=== PATIENT | male | born 2000 | race Caucasian/White ===

== ENCOUNTER 2022-06-12 10:14 | Emergency (ER) | payer SELFPAY ==
[2022-06-12 10:20] VITALS: BP 146/85; PULSE 80; RESP 16; TEMP 36.4; O2SAT 99; BMI 22.5
--- NOTE | 2022-06-12 10:32 | ED_ITS ---
HPI - Abdominal Pain General: Chief Complaint: Abdominal Pain Stated Complaint: abd pain Time Seen by Provider: 06/12/22 10:25 History of Present Illness: Patient is a 22-year-old male comes to the ED with abdominal pain. Symptoms started last night and it woke him up. He describes having 7 out of 10 aching/sharp pain in the upper abdomen bilaterally but most of it is located in the epigastric region. He has never had pain like this before and denies any history of acid reflux. Patient Dors is having normal daily bowel movements. Denies any fevers, chills, nausea/vomiting, bladder or bowel symptoms. Denies any black stool. Associated Symptoms: Denies chills, constipation, diarrhea, dysuria, fever(s), hematochezia, hematuria, nausea and vomiting Review of Systems Const: Denies: fever(s), chills or fatigue Eyes: Denies: change in vision or eye discomfort ENMT: Denies: throat pain, odynophagia, nasal discharge or nasal congestion Card: Denies: chest pain, palpitations, edema, swelling of feet/ankles, dyspnea on exertion or orthopnea Resp: Denies: dyspnea, productive cough or non-productive cough GI: Reports: abdominal pain; Denies: nausea, vomiting, diarrhea, constipation or hematochezia : Denies: flank pain, difficulty urinating, dysuria or hematuria Musc: Denies: neck pain, back pain or extremity swelling Skin/Breast: Denies: rash or new lesions Neuro: Denies: headache(s), numbness in extremities or weakness in extremities [facility] ED PFSH: Medical History (Updated 06/12/22 @ 12:22 by ERICKA Fernandez) No pertinent family history Surgical History (Updated 06/12/22 @ 10:35 by ERICKA Fernandez) No pertinent past surgical history Physical Exam Const: COMMON NORMALS: no acute distress, patient oriented x3, healthy appearing and alert GENERAL APPEARANCE: cooperative and comfortable HENMT: COMMON NORMALS: normocephalic HEAD & SCALP: normocephalic MOUTH: Normal oral and palatal mucosa present THROAT: posterior oropharynx normal and uvula midline Neck/C-Spine: COMMON NORMALS: supple GENERAL: Yes normal visual inspection Resp: COMMON NORMALS: normal respiratory effort, No retractions, No use of accessory muscles and clear to auscultation bilaterally AUSCULTATION: clear to auscultation bilaterally Cardio: COMMON NORMALS: regular rate, regular rhythm, S1 normal heart sound present, S2 normal heart sound present, No gallops present (Cardio), No clicks present (Cardio), No murmurs present (Cardio) and Peripheral pulses 2+ throughout RATE: regular rate RHYTHM: regular rhythm HEART SOUNDS: S1 normal heart sound present and S2 normal heart sound present PERIPHERAL PULSES: Peripheral pulses 2+ throughout GI: COMMON NORMALS: Normal to inspection, nondistended, normoactive bowel shyanne nds present, Soft to palpation and no masses PALPATION: Yes Soft to palpation and Yes Tenderness to palpation present (GI) (Mild tenderness to upper abdomen bilaterally and epigastric region) Details: LUQ, RUQ and other (Epigastric) : COMMON NORMALS: Yes no CVA tenderness BLADDER/KIDNEY EXAM: Yes no CVA tenderness Back/Pelvis: COMMON NORMALS: no CVA tenderness Extremity: COMMON NORMALS: normal to inspection Neuro: COMMON NORMALS: patient oriented x3 SENSORIUM/ORIENTATION: Yes alert GAIT: Yes Normal gait present Skin: GENERAL SKIN EXAM: dry skin Course Vital Signs: Vital signs: Vital Signs Temperature 97.6 F 06/12/22 10:20 Pulse Rate 72 06/12/22 12:25 Respiratory Rate 16 06/12/22 10:20 Blood Pressure 128/67 06/12/22 12:25 Pulse Oximetry 99 06/12/22 12:25 Oxygen Delivery Me thod 06/12/22 12:25 MDM - Abdominal Pain Medical Decision Making Patient is a 22-year-old male comes to the ED with abdominal pain. Symptoms started last night and it woke him up. He describes having 7 out of 10 aching/sharp pain in the upper abdomen bilaterally but most of it is located in the epigastric region. He has never had pain like this before and denies any history of acid reflux. Patient Dors is having normal daily bowel movements. Denies any fevers, chills, nausea/vomiting, bladder or bowel symptoms. Denies any black stool. Vitals are stable. Patient appears nontoxic and in no acute distress or pain. He is healthy appearing and sitting comfortably on exam bed. He has some mild tenderness is generalized throughout the upper abdomen. KUB shows a lot of stool in the large intestine and all labs were unremarkable. Given patient's clinical appearance, exam, labs and KUB he is stable for discharge home and can follow-up with his PCP in the next 3 to 5 days for reevaluation. He was sent home with a prescription for MiraLAX to help with bowel movements. Strict return to ED precautions given. Patient understood and agreed with plan. Lab Data I reviewed the patient's lab results. 06/12/22 10:47 06/12/22 10:47 Labs/Radiology: Radiology Impressions KUB X-Ray 06/12/22 10:36 IMPRESSION: Probable constipation otherwise negative study. Laboratory Results WBC 6.4 10^3/uL (4.0-10.0) 06/12/22 10:47 RBC 5.67 10^6/uL (4.1-5.3) H 06/12/22 10:47 Hgb 15.9 g/dL (11.7-16.6) 06/12/22 10:47 Hct 49.7 % (42.0-52.0) 06/12/22 10:47 MCV 87.7 fl (80-94) 06/12/22 10:47 MCH 28.0 pg (28.0-34.0) 06/12/22 10:47 MCHC 32.0 g/dL (30.0-36.0) 06/12/22 10:47 RDW 14.0 % (12.1-15.1) 06/12/22 10:47 Plt Count 363 10^3/cmm (130-400) 06/12/22 10:47 MPV 9.2 fL (7.4-10.4) 06/12/22 10:47 Neut % (Auto) 68.9 % 06/12/22 10:47 Lymph % (Auto) 18.6 % 06/12/22 10:47 [place] % (Auto) 9.0 % 06/12/22 10:47 Eos % (Auto) 3.0 % 06/12/22 10:47 Baso % (Auto) 0.3 % 06/12/22 10:47 Neut # (Auto) 4.39 10^3/uL (1.8-7.7) 06/12/22 10:47 Lymph # (Auto) 1.2 10^3/uL (0.8-4.8) 06/12/22 10:47 [place] # (Auto) 0.6 10^3/uL (0.2-0.9) 06/12/22 10:47 Eos # (Auto) 0.2 10^3/uL (0.0-0.8) 06/12/22 10:47 Baso # (Auto) 0.0 10^3/uL (0.0-0.1) 06/12/22 10:47 Nucleated RBC % (auto) 0 % 06/12/22 10:47 Nucleated RBCs # 0.0 /100WBC 06/12/22 10:47 Sodium 139 mmol/L (136-145) 06/12/22 10:47 Potassium 4.4 mmol/L (3.5-5.1) 06/12/22 10:47 Chloride 102 mmol/L (98-107) 06/12/22 10:47 Carbon Dioxide 26 mmol/L (22-29) 06/12/22 10:47 Anion Gap 15.4 (5-19) 06/12/22 10:47 BUN 7 mg/dL (6-20) 06/12/22 10:47 Creatinine 0.7 mg/dL (0.7-1.2) 06/12/22 10:47 GFR Calculation 138.6 mL/min (90-130) H 06/12/22 10:47 Glucose 95 mg/dL (65-115) 06/12/22 10:47 Calculated Osmolality 286 mOsm/kg (285-295) 06/12/22 10:47 Calcium 9.2 mg/dL (8.5-10.5) 06/12/22 10:47 Total Bilirubin 0.5 mg/dL (0.15-1.2) 06/12/22 10:47 AST 14 U/L (0-40) 06/12/22 10:47 ALT 8 U/L (0-41) 06/12/22 10:47 Alkaline Phosphatase 75 U/L (40-130) 06/12/22 10:47 Total Protein 7.6 g/dL (6.6-8.7) 06/12/22 10:47 Albumin 4.7 g/dL (3.5-5.2) 06/12/22 10:47 Globulin 2.9 g/dL (1.3-4.6) 06/12/22 10:47 Lipase 13 U/L (13-60) 06/12/22 10:47 Urine Color Yellow (Yellow) 06/12/22 10:47 Urine Appearance Clear (CLEAR) 06/12/22 10:47 Urine pH 8 (5-7) H 06/12/22 10:47 Ur Specific [place] 1.010 (1.005-1.030) 06/12/22 10:47 Urine Protein Neg (Negative) 06/12/22 10:47 Urine Glucose (UA) Norm (Normal) 06/12/22 10:47 Urine Ketones Negative (Negative) 06/12/22 10:47 Urine Blood Neg (Negative) 06/12/22 10:47 Urine Nitrate Negative (Negative) 06/12/22 10:47 Urine Bilirubin Neg (Negative) 06/12/22 10:47 Prot Sulfosalicylic Acd Negative (Negative) 06/12/22 10:47 Urine Urobilinogen Neg mg/dL (Negative) 06/12/22 10:47 Ur Leukocyte Esterase Negative (Negative) 06/12/22 10:47 Discharge Plan Discharge Patient Disposition: Home Clinical Impression: Abdominal pain Qualifiers: Abdominal location: upper abdomen, unspecified Qualified Code(s): R10.10 - Upper abdominal pain, unspecified Constipation Qualifiers: Constipation type: unspecified constipation type Qualified Code(s): K59.00 - Constipation, unspecified Condition: Stable Prescriptions: New Miralax 17 gram/dose powder 17 g PO DAILY 3 Days Qty: 119 0RF Discharge Orders: Discharge ED (Routine); Ordered 06/12/22 Ordered By: Thaddeus Valdez Discharge Diet: Regular Discharge Activity: Increase activity as tolerated Patient Instructions: Constipation - Adult, Abdominal Pain (ED) Activity Restrictions/Additional Instructions: Follow-up with your primary care provider in the next 3 to 5 days for reevaluation. Take medications as prescribed. Make sure you drink plenty of fluids and stay hydrated. Return to the ER or your medical provider if condition worsens. Please read and understand discharge instructions. Thank you for choosing [facility] for your healthcare needs today. Please realize this is an emergency room and that we are providing you with a medical screening exam and this may not be complete and all inclusive of all the testing and or work up that you may need to determine your ailment or severity of your illness. It is very important that you follow up as instructed or that you return to the Emergency Department should you have concerns or if your condition changes or worsens in any way. Coding Level of Care Code ED [employer] for Janel Navas Exam Comprehensive
--- NOTE | 2022-06-12 10:36 | XRR_ITS ---
PROCEDURE INFORMATION: Exam: XR Abdomen Exam date and time: 06/12/2022 10:45 AM Age: 22 years old Clinical indication: Localized; Patient HX: Upper abdominal pain, sharp pains for 2 days TECHNIQUE: Imaging protocol: Radiologic exam of the abdomen. Views: Frontal supine view of the abdomen. 1 View. COMPARISON: No relevant prior studies available. FINDINGS: Gastrointestinal tract: There is a moderate degree of retained stool throughout the large bowel likely reflecting some degree of constipation. Bones/joints: Unremarkable. Other findings: No suspicous calcifications. XR/XR KUB [id number] IMPRESSION: Probable constipation otherwise negative study.
[2022-06-12 10:56] LABS: Add Urine Microscopic? NO; Charge for UA Resulting for Rev
[2022-06-12 10:57] LABS: Basophils % 0.3 %; Eosinophils # 0.2 10^3/uL (0.0-0.8); Hematocrit 49.7 % (42.0-52.0); Hemoglobin 15.9 g/dL (11.7-16.6); Lymphocytes # 1.2 10^3/uL (0.8-4.8); Lymphocytes % 18.6 %; Mean Corpuscular Volume 87.7 fl (80-94); Mean Platelet Volume 9.2 fL (7.4-10.4); Monocytes # 0.6 10^3/uL (0.2-0.9); Neutrophils # 4.39 10^3/uL (1.8-7.7); Neutrophils % 68.9 %; Nucleated Red Blood Cells % 0 %; Platelet Count 363 10^3/cmm (130-400); Red Blood Count 5.67 10^6/uL (4.1-5.3); White Blood Count 6.4 10^3/uL (4.0-10.0)
[2022-06-12 11:02] VITALS: BP 128/63; PULSE 62; O2SAT 100
[2022-06-12 11:15] LABS: Bilirubin Urine Neg (Negative); Blood Urine Neg (Negative); Glucose Urine UA Norm (Normal); Ketones Urine Negative (Negative); Leukocyte Esterase Urine Negative (Negative); Nitrate Urine Negative (Negative); Protein Urine Neg (Negative); Sulfosalicylic Acid Urine Negative (Negative); Urine Appearance Clear (CLEAR); Urine Color Yellow (Yellow); Urobilinogen Urine Neg (Negative); pH Urine 8 (5-7)
[2022-06-12 11:27] LABS: Alanine Aminotransferase 8 U/L (0-41); Albumin Level 4.7 g/dL (3.5-5.2); Alkaline Phosphatase 75 U/L (40-130); Aspartate Amino Transferase 14 U/L (0-40); Blood Urea Nitrogen 7 mg/dL (6-20); Calcium 9.2 mg/dL (8.5-10.5); Carbon Dioxide 26 mmol/L (22-29); Chloride 102 mmol/L (98-107); Globulin 2.9 g/dL (1.3-4.6); Glomerular Filtration Rate 138.6 mL/min (90-130); Glucose 95 mg/dL (65-115); Lipase 13 U/L (13-60); Osmolality Calculated 286 mOsm/kg (285-295); Sodium 139 mmol/L (136-145); Total Bilirubin 0.5 mg/dL (0.15-1.2); Total Protein 7.6 g/dL (6.6-8.7)
[2022-06-12 11:31] LABS: Anion Gap 15.4 (5-19); Potassium 4.4 mmol/L (3.5-5.1)
[2022-06-12] MEDS: lidocaine 2% viscous 15 ML, aluminum-mag hydrox-simethicon 30 ML, sucralfate oral liq 1 GM PO (12:23)
[2022-06-12 12:25] VITALS: BP 128/67; PULSE 72; O2SAT 99
== END 2022-06-12 13:35 | disposition home or self-care (01) ==
PROVIDERS: Emergency Provider Physician Assistant
DX: K59.00 Constipation, unspecified (principal)
CPT/HCPCS: 74018; 80053; 81003; 83690; 85025; 99284

== ENCOUNTER 2022-06-13 09:52 | Emergency (ER) | payer SELFPAY ==
[2022-06-13 10:41] LABS: Basophils % 0.3 %; Eosinophils # 0.1 10^3/uL (0.0-0.8); Eosinophils % 1.9 %; Hematocrit 49.8 % (42.0-52.0); Hemoglobin 16.3 g/dL (11.7-16.6); Lymphocytes % 14.4 %; Mean Corpuscular HGB Conc 32.7 g/dL (30.0-36.0); Mean Corpuscular Hemoglobin 28.6 pg (28.0-34.0); Mean Corpuscular Volume 87.4 fl (80-94); Mean Platelet Volume 9.2 fL (7.4-10.4); Monocytes # 0.6 10^3/uL (0.2-0.9); Neutrophils # 5.26 10^3/uL (1.8-7.7); Neutrophils % 75.1 %; Nucleated Red Blood Cells % 0 %; Platelet Count 351 10^3/cmm (130-400); Red Cell Distribution Width 13.8 % (12.1-15.1)
[2022-06-13 10:42] VITALS: BP 155/96; PULSE 46; RESP 18; TEMP 36.7; O2SAT 99; BMI 22.1
[2022-06-13 11:06] LABS: Alanine Aminotransferase 8 U/L (0-41); Alkaline Phosphatase 77 U/L (40-130); Anion Gap 13.7 (5-19); Aspartate Amino Transferase 14 U/L (0-40); Blood Urea Nitrogen 7 mg/dL (6-20); Calcium 9.5 mg/dL (8.5-10.5); Carbon Dioxide 28 mmol/L (22-29); Chloride 103 mmol/L (98-107); Globulin 3.2 g/dL (1.3-4.6); Glomerular Filtration Rate 138.6 mL/min (90-130); Glucose 122 mg/dL (65-115); Lipase 11 U/L (13-60); Osmolality Calculated 289 mOsm/kg (285-295); Potassium 4.7 mmol/L (3.5-5.1); Sodium 140 mmol/L (136-145); Total Bilirubin 0.5 mg/dL (0.15-1.2); Total Protein 8.2 g/dL (6.6-8.7)
[2022-06-13 11:31] LABS: H. Pylori IgG Antibody Negative (Negative)
[2022-06-13 11:52] LABS: Add Urine Microscopic? NO; Charge for UA Resulting for Rev
--- NOTE | 2022-06-13 11:56 | ED_ITS ---
HPI - Abdominal Pain General: Chief Complaint: Abdominal Pain Stated Complaint: abd pain worsened Time Seen by Provider: 06/13/22 09:53 Source: patient Mode of arrival: ambulatory History of Present Illness: [id number] male presents emergency room with complaints of abdominal pain he was seen yesterday for same showed constipation. Has taken MiraLAX and some feels like he has not gotten adequate relief. No dysuria urgency or frequency medic easy melena hematemesis or coffee-ground emesis. Planes muscle pain in the epigastric area MD elicited complaint: abdominal pain Pertinent past history: constipation Onset (ago): day(s) Pain Consistency: constant Location: Epigastric Quality: cramping Exacerbating factors: nothing Relieving factors: nothing Associated Symptoms: Reports bloating, constipation, GI cramping, nausea and poor appetite; Denies belching, change in bowel habits, change in stool character, chills, coffee ground emesis, diarrhea, dyspepsia, dysuria, excessive flatus, fever(s), heartburn, hematochezia, hematuria, hematemesis, fecal incontinence, loose stools, melena and vomiting Review of Systems Const: Denies: fever(s) or chills Resp: Denies: dyspnea, productive cough or non-productive cough GI: Reports: abdominal pain, nausea, constipation, bloating and GI cramping; Denies: vomiting, hematemesis, coffee ground emesis, heartburn, diarrhea, belching, excessive flatus, fecal incontinence, change in bowel habits, change in stool character, hematochezia or melena : Denies: dysuria, urinary frequency, urinary urgency or hematuria Skin/Breast: Denies: rash or pruritus PFSH ED PFSH: Medical History No pertinent family history Surgical History No pertinent past surgical history Physical Exam Const: GENERAL APPEARANCE: cooperative and comfortable ORIENTATION/CONSCIOUSNESS: Yes awake, Yes oriented to person, Yes oriented to place and Yes oriented to time HENMT: COMMON NORMALS: normocephalic, atraumatic and hearing grossly normal bilaterally HEAD & SCALP: normocephalic and atraumatic Resp: COMMON NORMALS: normal respiratory effort, No retractions, No use of accessory muscles and clear to auscultation bilaterally AUSCULTATION: clear to auscultation bilaterally Cardio: COMMON NORMALS: regular rate, regular rhythm and No murmurs present (C ardio) RATE: regular rate RHYTHM: regular rhythm GI: COMMON NORMALS: Soft to palpation and No hepatosplenomegaly present AUSCULTATION: Yes normoactive bowel sounds PALPATION: Yes Soft to palpation, No Tenderness to palpation present (GI), No Guarding due to palpation present (GI) and Yes No hepatosplenomegaly present Extremity: COMMON NORMALS: normal to inspection, capillary refill normal, no clubbing, cyanosis or edema, no calf tenderness and no pedal edema Neuro: SENSORIUM/ORIENTATION: Yes oriented to person, Yes oriented to place and Yes oriented to time Skin: COMMON NORMALS: no rashes or lesions noted GENERAL SKIN EXAM: no rashes or lesions noted Course Vital Signs: Vital signs: Vital Signs Temperature 98.0 F 06/13/22 10:42 Pulse Rate 46 L 06/13/22 10:42 Respiratory Rate 18 06/13/22 10:42 Blood Pressure 155/96 06/13/22 10:42 Pulse Oximetry 99 06/13/22 10:42 Oxygen Delivery Me thod 06/13/22 10:42 MDM - Abdominal Pain Medical Decision Making Abdominal exam benign labs reviewed. Yesterday's KUB reviewed. Patient appears still has significant constipation has had no relief with MiraLAX. We will have him use lactulose 1 dose every 2 hours till desired result achieved Medical Records I reviewed the patient's medical records. Lab Data I reviewed the patient's lab results. 06/13/22 10:32 06/13/22 10:32 Labs/Radiology: Laboratory Results WBC 7.0 10^3/uL (4.0-10.0) 06/13/22 10:32 RBC 5.70 10^6/uL (4.1-5.3) H 06/13/22 10:32 Hgb 16.3 g/dL (11.7-16.6) 06/13/22 10:32 Hct 49.8 % (42.0-52.0) 06/13/22 10:32 MCV 87.4 fl (80-94) 06/13/22 10:32 MCH 28.6 pg (28.0-34.0) 06/13/22 10:32 MCHC 32.7 g/dL (30.0-36.0) 06/13/22 10:32 RDW 13.8 % (12.1-15.1) 06/13/22 10:32 Plt Count 351 10^3/cmm (130-400) 06/13/22 10:32 MPV 9.2 fL (7.4-10.4) 06/13/22 10:32 Neut % (Auto) 75.1 % 06/13/22 10:32 Lymph % (Auto) 14.4 % 06/13/22 10:32 [place] % (Auto) 8.0 % 06/13/22 10:32 Eos % (Auto) 1.9 % 06/13/22 10:32 Baso % (Auto) 0.3 % 06/13/22 10:32 Neut # (Auto) 5.26 10^3/uL (1.8-7.7) 06/13/22 10:32 Lymph # (Auto) 1.0 10^3/uL (0.8-4.8) 06/13/22 10:32 [place] # (Auto) 0.6 10^3/uL (0.2-0.9) 06/13/22 10:32 Eos # (Auto) 0.1 10^3/uL (0.0-0.8) 06/13/22 10:32 Baso # (Auto) 0.0 10^3/uL (0.0-0.1) 06/13/22 10:32 Nucleated RBC % (auto) 0 % 06/13/22 10:32 Nucleated RBCs # 0.0 /100WBC 06/13/22 10:32 Sodium 140 mmol/L (136-145) 06/13/22 10:32 Potassium 4.7 mmol/L (3.5-5.1) 06/13/22 10:32 Chloride 103 mmol/L (98-107) 06/13/22 10:32 Carbon Dioxide 28 mmol/L (22-29) 06/13/22 10:32 Anion Gap 13.7 (5-19) 06/13/22 10:32 BUN 7 mg/dL (6-20) 06/13/22 10:32 Creatinine 0.7 mg/dL (0.7-1.2) 06/13/22 10:32 GFR Calculation 138.6 mL/min (90-130) H 06/13/22 10:32 Glucose 122 mg/dL (65-115) H 06/13/22 10:32 Calculated Osmolality 289 mOsm/kg (285-295) 06/13/22 10:32 Calcium 9.5 mg/dL (8.5-10.5) 06/13/22 10:32 Total Bilirubin 0.5 mg/dL (0.15-1.2) 06/13/22 10:32 AST 14 U/L (0-40) 06/13/22 10:32 ALT 8 U/L (0-41) 06/13/22 10:32 Alkaline Phosphatase 77 U/L (40-130) 06/13/22 10:32 Total Protein 8.2 g/dL (6.6-8.7) 06/13/22 10:32 Albumin 5.0 g/dL (3.5-5.2) 06/13/22 10:32 Globulin 3.2 g/dL (1.3-4.6) 06/13/22 10:32 Lipase 11 U/L (13-60) L 06/13/22 10:32 H. pylori IgG Antibody Negative (Negative) 06/13/22 10:32 Discharge Plan Discharge Patient Disposition: Home Clinical Impression: Constipation Condition: Stable Prescriptions: New lactulose 20 gram/30 mL solution 30 g PO Q2H 1 Days Qty: 540 0RF Rx Instructions: until desired laxative effect No Action Miralax 17 gram/dose powder 17 g PO DAILY 3 Days Qty: 119 0RF Discharge Orders: Discharge ED (Routine); Ordered 06/13/22 Ordered By: Puneet Joshi Discharge Diet: Clear Liquid Discharge Activity: Increase activity as tolerated Patient Instructions: Constipation (ED), Opioid Safety, Pain Management Activity Restrictions/Additional Instructions: Done today in the emergency room unremarkable. Recommend clear liquid diet for next 24 to 48 hours use lactulose every 2 hours until desired results are achieved. Coding Level of Care Code ED [employer] Dist[employer] for Janel Navas
[2022-06-13 11:59] LABS: Bilirubin Urine Neg (Negative); Blood Urine Neg (Negative); Glucose Urine UA Norm (Normal); Ketones Urine Negative (Negative); Leukocyte Esterase Urine Negative (Negative); Nitrate Urine Negative (Negative); Protein Urine Neg (Negative); Specific Gravity, Urine 1.025 (1.005-1.030); Urine Appearance Clear (CLEAR); Urine Color Yellow (Yellow); Urobilinogen Urine Norm (Negative); pH Urine 6 (5-7)
[2022-06-13 12:10] VITALS: BP 149/89; PULSE 51; RESP 15; O2SAT 98
== END 2022-06-13 12:11 | disposition home or self-care (01) ==
PROVIDERS: Physician Assistant; Emergency Provider Family Medicine
DX: K59.00 Constipation, unspecified (principal)
CPT/HCPCS: 36415; 80053; 81003; 83690; 85025; 86677; 99283